=== PATIENT | male | born 1945 | race Caucasian/White ===

== ENCOUNTER → 2017-04-28 | Outpatient (CLI) | payer MEDICARE ==
[~2017-04-28] MED LIST: ASPI81TA28 PO; ATOR-22 PO; GLUCTAB7 PO; MULT-506 PO; OMEG10007 PO; TADA5TAB11 PO
== END | disposition home or self-care (01) ==
LOC: C.PATH 16:49
PROVIDERS: ATTEND Dermatology
DX: L82.0 Inflamed seborrheic keratosis (principal)

== ENCOUNTER → 2017-07-30 | Day surgery (SDC) | payer MEDICARE ==
[2017-07-15 08:28] VITALS: Ht 177.8 cm; Wt 74.5 kg
[~2017-07-30] VITALS: Ht 177.8 cm; Wt 74.5 kg
[~2017-07-30] MED LIST changes: +LIDOCAINE HCL 2% 2 ML VIAL (20MG/ML) ONE; +PROPOFOL IV EMULSION 10 MG/ML 20 ML VIAL IV ONE; +SODIUM CHLORIDE 0.9% 500ML 500 ML IV ONE
--- NOTE | 2017-07-30 08:09 | Endo History and Physical ---
History & Physical Date of Service: Jul 30, 2017. Chief Complaint: screening Referring Physician: RODNEY ROSE History of Present Illness 72 yo CM who presents for screening colonoscopy. Past Medical History Arthritis, Asthma, Reflux, High Cholesterol Past Surgical History Hx Cardiac Surgery: No Hx Internal Defibrillator: No Hx Pacemaker: No Hx Abdominal Surgery: No Hx of Implantable Prosthesis: No Hx Post-Op Nausea and Vomiting: No Hx Cancer Surgery: No Hx Thoracic Surgery: No Hx Orthopedic: No Hx Urinary Tract Surgery: No Family History None Social History Smoking Status: Never Smoker Hx Substance Use: No Hx Alcohol Use: Yes (OCCASIONAL) Allergies Coded Allergies: No Known Allergies (Verified , 07/30/17) Current Medications Reported Home Medications Medications Dose Route/Sig Max Daily Dose Days Date Category Aspirin Ec (Aspirin) 81 Mg Tab 81 Mg PO QAM 07/15/17 Reported [place]-3 (Fish Oil) 1 Ea Cap 1 Cap PO DAILY 06/14/16 Reported Glucosamine Chondroitin (Pyfzqwomafo-Tpjwzqujbwj-Ibu C-) 1 Tab Tab 1 Tab PO DAILY 06/14/16 Reported Lipitor (Atorvastatin Calcium) 20 Mg Tab 20 Mg PO QPM 03/07/16 Reported Cialis (Tadalafil) 5 Mg Tab 5 Mg PO DAILY PRN 04/11/15 Reported Multivitamin (Multivitamins) Tab 1 Tab PO QAM 03/28/10 Reported Vital Signs Weight (Kilograms): 74.55 Height (Feet): 5 Height (Inches): 10 Date Time Temp Pulse Resp B/P (MAP) Pulse Ox O2 Delivery O2 Flow Rate FiO2 07/30/17 08:02 36.5 73 16 119/72 (88) 93 Room Air Physical Exam General Appearance: WD/WN, no apparent distress Respiratory/Chest: Auscultation: breath sounds normal Cardiovascular: Heart Auscultation: RRR Abdomen: Bowel Sounds: normal Inspection & Palpation: soft, non-distended, no tenderness, guarding & rebound Assessment and Plan Assessment: 72 yo CM who presents for screening colonoscopy. Plan: Proceed with colonoscopy.
--- NOTE | 2017-07-30 08:39 | Discharge Instructions ---
Endoscopy Patient Instructions Date / Procedure(s) Performed Jul 30, 2017. Colonoscopy Allergy Information Coded Allergies: No Known Allergies (Verified , 07/30/17) Discharge Date / Findings Jul 30, 2017. Diverticulosis Internal hemorrhoids Medication Instructions Stopped Medication(s): aspirin 81mg last dose 07/28/17 OK to resume all medications today as prescribed Reported Home Medications Medications Dose Route/Sig Max Daily Dose Days Date Category Aspirin Ec (Aspirin) 81 Mg Tab 81 Mg PO QAM 07/15/17 Reported [place]-3 (Fish Oil) 1 Ea Cap 1 Cap PO DAILY 06/14/16 Reported Glucosamine Chondroitin (Kummhdfakqv-Zujqoqixicv-Wai C-) 1 Tab Tab 1 Tab PO DAILY 06/14/16 Reported Lipitor (Atorvastatin Calcium) 20 Mg Tab 20 Mg PO QPM 03/07/16 Reported Cialis (Tadalafil) 5 Mg Tab 5 Mg PO DAILY PRN 04/11/15 Reported Multivitamin (Multivitamins) Tab 1 Tab PO QAM 03/28/10 Reported Provider Instructions Activity Restrictions - No exercising or heavy lifting for 24 hours. - Do not drink alcohol the day of the procedure. - Do not drive a car or operate machinery until the day after the procedure. - Do not make any important decisions or sign important papers in 24 hours after the procedure. Following Day: - Return to full activity which may include returning to work/school. Diet Start your diet with liquids and light foods (jello, soup, juice, toast). Then eat your usual diet if not nauseated. Treatment For Common After Affects For mild abdominal pain, bloating, or excessive gas: - Rest - Eat lightly - Lie on right side Follow-Up Information Follow-up with RODNEY ROSE as scheduled Anesthesia Information What You Should Know You have had a procedure that required some medicine to reduce anxiety and discomfort. This treatment is called moderate sedation. After receiving the treatment, you may be sleepy, but you will be able to breathe on your own. The effects of the treatment may last for several hours. Follow these instructions along with Activity/Diet recommendations noted above: * Do NOT do anything where dizziness or clumsiness would be dangerous. * Rest quietly at home today, then you can be up and about tomorrow. * Have a responsible person stay with you the rest of today. * You may have had an I.V. today. If so, you may take the dressing off later today. Recommendations Call your doctor if: * Trouble breathing * Continuous vomiting for more than 24 hours * Temperature above 101 degrees * Severe abdominal pain or bloating * Pain not relieved by pain medicine ordered * There is increased drainage or redness from any incision * A large amount of rectal bleeding greater than 2-3 tablespoons. (If you had a polyp/s removed or have hemorrhoids, a small amount of blood - from the rectum is to be expected.) * You have any unanswered questions or concerns. IN THE EVENT OF A SERIOUS EMERGENCY, GO TO THE NEAREST EMERGENCY ROOM Your discharge instructions were prepared by provider Gucci Wilcox. Patient Instructions Signature Page Dre Mcduffie Patient (or Guardian) Signature/Date: I have read and understand the instructions given to me by my caregivers. Caregiver/RN/Doctor Signature/Date: The above-named patient and/or guardian has received patient instructions on this date. + Original Patient Signature Page (only) stays with chart. Please make copy for patient.
--- NOTE | 2017-07-30 08:55 | Anesthesiology Progress Note ---
Anesthesia Post Op Note Date & Time Jul 30, 2017 at 08:55 Vital Signs Pain Intensity: 0 Vital Signs Past 12 Hours Date Time Temp Pulse Resp B/P (MAP) Pulse Ox O2 Delivery O2 Flow Rate FiO2 07/30/17 08:38 73 16 118/68 (85) 95 Room Air 07/30/17 08:02 36.5 73 16 119/72 (88) 93 Room Air Notes Mental Status: alert / awake / arousable, participated in evaluation Pt Amnestic to Procedure: Yes Nausea / Vomiting: adequately controlled Pain: adequately controlled Airway Patency, RR, SpO2: stable & adequate BP & HR: stable & adequate Hydration State: stable & adequate Anesthetic Complications: no major complications apparent
--- NOTE | 2017-07-30 09:00 | GI REPORT ---
Procedure Date: 07/30/2017 8:19 AM Procedure: Colonoscopy Indications: Screening for colorectal malignant neoplasm Medicines: Monitored Anesthesia Care Complications: No immediate complications. Estimated Blood Loss: Estimated blood loss: none. Procedure: Pre-Anesthesia Assessment: - Prior to the procedure, a History and Physical was performed, and patient medications and allergies were reviewed. The patient's tolerance of previous anesthesia was also reviewed. The risks and benefits of the procedure and the sedation options and risks were discussed with the patient. All questions were answered, and informed consent was obtained. Prior Anticoagulants: The patient has taken no previous anticoagulant or antiplatelet agents. ASA Grade Assessment: I - A normal, healthy patient. After reviewing the risks and benefits, the patient was deemed in satisfactory condition to undergo the procedure. After I obtained informed consent, the scope was passed under direct vision. Throughout the procedure, the patient's blood pressure, pulse, and oxygen saturations were monitored continuously. The On-site loaner was introduced through the anus and advanced to the terminal ileum. The colonoscopy was performed without difficulty. The patient tolerated the procedure well. The quality of the bowel preparation was good. The terminal ileum, ileocecal valve, appendiceal orifice, and rectum were photographed. Findings: Multiple small-mouthed diverticula were found in the sigmoid colon. Non-bleeding internal hemorrhoids were found during retroflexion. The hemorrhoids were small. Impression: - Diverticulosis in the sigmoid colon. - Non-bleeding internal hemorrhoids. - No specimens collected. Recommendation: - Resume previous diet. - Continue present medications. - Repeat colonoscopy in 10 years for surveillance. - Return to primary care physician as previously scheduled. Gucci Wilcox, DO 07/30/2017 8:59:49 AM This report has been signed electronically. Note Initiated On: 07/30/2017 8:19 AM I attest to the content of the Intraoperative Record and orders documented therein, exceptions below
[2017-07-30 09:09] VITALS: BP 132/72; PULSE 67; O2SAT 97
== END | disposition home or self-care (01) ==
LOC: C.GI 07:29
PROVIDERS: ATTEND Internal Medicine
DX: Z12.11 Encounter for screening for malignant neoplasm of colon (principal); K57.30 Diverticulosis of large intestine without perforation or abscess without bleeding; K64.8 Other hemorrhoids; E78.00 Pure hypercholesterolemia, unspecified; K21.9 Gastro-esophageal reflux disease without esophagitis; J45.909 Unspecified asthma, uncomplicated; M19.90 Unspecified osteoarthritis, unspecified site; Z79.82 Long term (current) use of aspirin; Z79.899 Other long term (current) drug therapy

== ENCOUNTER → 2018-03-31 | Outpatient (CLI) | payer MEDICARE ==
[~2018-03-31] MED LIST changes: -LIDOCAINE HCL 2% 2 ML VIAL (20MG/ML) ONE; -PROPOFOL IV EMULSION 10 MG/ML 20 ML VIAL IV ONE; -SODIUM CHLORIDE 0.9% 500ML 500 ML IV ONE
--- NOTE | 2018-03-31 12:01 | DIAGNOSTIC IMAGING REPORT ---
TWO VIEW CHEST CLINICAL HISTORY: Cough. FINDINGS: PA and lateral chest radiographs are compared to study dated 03/28/2010. The heart is mildly enlarged and there is atherosclerotic calcification of the thoracic aorta. Chronic interstitial thickening is similar to previous. No airspace consolidation or pleural effusion is identified. There is no pneumothorax. The skeletal structures are osteopenic. The bony thorax appears intact. IMPRESSION: Mild cardiac enlargement with no acute cardiopulmonary abnormality. Electronically signed by: Oli Dawson M.D. 03/31/2018 11:59 AM Dictated Date/Time: 03/31/2018 11:58 AM
== END | disposition home or self-care (01) ==
LOC: C.RADBC 10:11
PROVIDERS: ATTEND Nurse Practitioner Family
DX: R05 Cough (principal)

== ENCOUNTER 2023-11-15 10:32 | Observation (INO) ==
[2023-11-15] MEDS ORDERED: SODIUM CHLORIDE 0.9% 1,000 ML IV ONE (10:41)
--- NOTE | 2023-11-15 10:47 | Emergency Department Note ---
Impression & Plan Bilateral pulmonary embolism, Chest pain, S/P TURP ED Provider Note NAME: BRAYDEN CASAS AGE: 78 SEX: M ARRIVES VIA: Walk-In INFORMANT: Patient ED PROVIDER(S): Amadou Will MD CHIEF COMPLAINT: Chest pain PLAN: Disposition: Admit MEDICAL DECISION MAKING: The patient is a pleasant 78-year-old gentleman with a past medical history of BPH who presents to the emergency department via walk-in for evaluation of chest pain that began yesterday evening and then again today in the setting of having a TURP procedure with urology earlier in the week. He reports he is concerned because his discharge directions included the risk of blood clots due to having had anesthesia. He denies any pain with inspiration. No significant shortness of breath. He reports he is traveling to [place] on Friday and wanted to be reassured that having is okay. He denies any fevers, chills, cough congestion, nausea, vomiting, or diarrhea. He reports he does have history of acid reflux and symptoms did begin after eating [place]er food last night. He denies any personal or family history of blood clots. On my evaluation the patient is no acute distress, afebrile stable vital signs. He has clear lungs. Normal respiratory effort. EKG without overt acute ischemia. Chest x-ray negative for acute cardiopulmonary process. WBC, H/H and platelets within normal limits. Chemistry without metabolic acidosis. Electrolytes LFTs unremarkable.-2 troponin 40.4, within normal limits. Lipase not elevated. CT of the chest was performed and demonstrates several bilateral segmental and subsegmental pulmonary emboli. Incidental small pericardial effusion is present. Findings reviewed with the patient. PESI score is intermediate risk. Patient agrees with plan for admission for further management. Case was discussed with Dr. Neves, [facility] hospitalist, who will evaluate the patient for admission. Treatment initiated with IV Heparin bolus and gtt. Further management per admitting team. Triage Nursing notes reviewed and agree them. Prior/external medical records reviewed Vital Signs: reviewed Differential diagnosis: Reactive airway disease, pneumonia, pneumothorax, COPD, CHF, infections, cardiac ischemia, pulmonary embolism, musculoskeletal, gastrointestinal, as well as other pathologies. ER treatment provided: See below. Diagnostics interpreted by me: ECG: Normal sinus rhythm, 83 bpm, no ectopy, no overt ST elevation or depression, QTc 418, QRS 98. Cardiac Monitoring: An order for continuous cardiac monitoring was placed and demonstrated Normal sinus rhythm, 83 bpm, no ectopy, Laboratory studies: See below Imaging studies: See below Consultation(s): Case was discussed with Dr. Neves, [facility] hospitalist, who will evaluate the patient for admission. HPI: The patient is a pleasant 78-year-old gentleman with a past medical history of BPH who presents to the emergency department via walk-in for evaluation of chest pain that began yesterday evening and then again today in the setting of having a TURP procedure with urology earlier in the week. He reports he is concerned because his discharge directions included the risk of blood clots due to having had anesthesia. He denies any pain with inspiration. No significant shortness of breath. He reports he is traveling to [facility] on Friday and wanted to be reassured that having is okay. He denies any fevers, chills, cough congestion, nausea, vomiting, or diarrhea. He reports he does have history of acid reflux and symptoms did begin after eating [place] food last night. He denies any personal or family history of blood clots. ROS: See above HPI for pertinent positives & negatives. A total of 10 systems reviewed and were otherwise negative. VITALS:See Below PHYSICAL EXAMINATION: GENERAL: Awake, alert, well-appearing, in no distress HENT: Normocephalic, atraumatic. Oropharynx with dry mucous membranes and otherwise unremarkable. EYES: Normal conjunctiva. Sclera non-icteric. NECK: Supple. No nuchal rigidity. FROM. No JVD. RESPIRATORY: Clear to auscultation. CARDIAC: Regular rate, normal rhythm. Extremities warm and well perfused. Pulses equal. ABDOMEN: Soft, non-distended. No tenderness to palpation. No rebound or guarding. No masses. RECTAL: Deferred. MUSCULOSKELETAL: Chest examination reveals no tenderness. The back is symmetrical on inspection without obvious abnormality. There is no CVA tenderness to palpation. No joint edema. LOWER EXTREMITIES: Calves are equal size bilaterally and non-tender. No edema. No discoloration. NEURO: Normal sensorium. No sensory or motor deficits noted. SKIN: No rash or jaundice noted. ED COURSE: Critical Care: I have personally spent greater than 35 minutes of critical care time in the direct management of this patient. This includes bedside care, interpretation of diagnostic studies, and testing, discussion with consultants, patient, and family members, and other required patient management activities. This 35 minutes is in excess of all separately billable procedures. Amadou Will MD Past Med/Surg History Medical History Trouble swallowing hx/egd with dilation within last 6 mon and effective. UTI (urinary tract infection) current abx for/pt feeling better. Acid reflux very mild. 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) Surgical History History of esophageal dilatation History of cataract surgery right History of esophagogastroduodenoscopy (EGD) History of colonoscopy History of tooth extraction WTE Family History Sister Breast cancer Father Heart abnormality Heart disease Diabetes Mother Diabetes Aunt Diabetes Denies family history of Malignant hyperthermia Ovarian cancer Prostate cancer Myocardial infarction Adverse anesthesia outcome Bleeding disorder Colorectal cancer Social History Smoking Status: Never smoker Second Hand Exposure: No; Do You Dip or Chew Tobacco: No; Hx Alcohol Use: Yes (socially) Alcohol type: beer, wine and hard liquor Alcohol Intake Frequency: Monthly or Less Hx Substance Use: No Preferred Language: Persian Communication Ability: Effective Visual Impairment: No Limitations Hearing Ability: Use of Hearing Aid Software Applications Engineer Required: No Beliefs That Will Affect Care: None marital status: Current Living Situation: Spouse current occupational status: retired How many Children do You have: 3 Feels Safe at Home: Yes Childhood Exposure to Second-Hand Smoke: No Diet: regular caffeine: Yes during the past year weight has: remained stable Dental Care, Regularly: Yes Physical Activity Frequency: Daily Seatbelt Use: always Sunscreen Use: Yes Do you think of yourself as: straight/heterosexual Assistive Devices: Glasses and Hearing Aid - Bilateral Allergies Allergies Allergy/AdvReac Type Severity Reaction Status Date / Time No Known Allergies Allergy Verified 11/11/23 10:34 Home Meds Home Medications Medication Instructions Recorded Confirmed antiarthritic combination no.2 900 1 mg PO QAM 04/20/19 11/15/23 mg tablet (glucosamine-chondroitin) atorvastatin 40 mg tablet 40 mg PO QPM 04/20/19 11/15/23 omega-3 fatty acids 1,000 mg 1,000 mg PO QAM 04/20/19 11/15/23 capsule (Fish Oil Concentrate) multivitamin (Daily Multi-Vitamin 1 tab PO QAM 05/01/20 11/15/23 tablet) fluticasone propionate 50 2 spray intranasal UD PRN 02/17/23 11/15/23 mcg/actuation nasal Congestion spray,suspension (Flonase Allergy Relief) tadalafil 5 mg tablet (Cialis) 5 mg PO UD PRN Sexual Activity 09/01/23 11/15/23 finasteride 5 mg tablet 5 mg PO QAM 11/05/23 11/15/23 pantoprazole 40 mg tablet,delayed 40 mg PO UD PRN Acid Reflux 11/05/23 11/15/23 release tamsulosin 0.4 mg capsule 0.4 mg PO QAM 11/05/23 11/15/23 Previous Rx's Medication Instructions Recorded sulfamethoxazole 800 1 tab PO BID #60 tabs 11/11/23 mg-trimethoprim 160 mg tablet (Bactrim DS) Results & Data (ED) Vital Signs Vital Signs - 24 hr 11/15/23 10:35 11/15/23 11:41 11/15/23 11:41 Temperature 36.5 C Temperature Source Temporal Artery Scan Pulse Rate 88 77 Pulse Rate [Right Finger] Respiratory Rate 19 16 Respiratory Effort / Characteristics Non-Labored Spontaneous Respiratory Depth Normal Respiratory Pattern Blood Pressure 123/75 Blood Pressure [Right Arm] Blood Pressure Mean 91 Blood Pressure Mean [Right Arm] Blood Pressure Position [Right Arm] Pulse Oximetry 98 98 98 Oxygen Delivery Method Room Air Room Air Room Air Sepsis Recent Fever Within 48 Hours No Sepsis New/Unexplained Change in Mental Status No Sepsis Action Taken by Nursing No Action Required 11/15/23 11:46 11/15/23 12:33 Temperature Temperature Source Pulse Rate 74 Pulse Rate [Right Finger] 76 Respiratory Rate 16 Respiratory Effort / Characteristics Non-Labored Spontaneous Respiratory Depth Normal Respiratory Pattern Regular Blood Pressure Blood Pressure [Right Arm] 132/73 Blood Pressure Mean Blood Pressure Mean [Right Arm] 92 Blood Pressure Position [Right Arm] Sitting Pulse Oximetry 97 Oxygen Delivery Method Room Air Sepsis Recent Fever Within 48 Hours Sepsis New/Unexplained Change in Mental Status Sepsis Action Taken by Nursing Laboratory Data Attestation: I reviewed the patient's lab results. 11/15/23 11:15 11/15/23 11:15 Lab Results 11/15/23 Range/Units 11:15 WBC 8.22 (4.8-10.8) K/ul RBC 4.93 (4.70-6.10) M/uL Hgb 15.2 (14.0-18.0) g/dl Hct 46.4 (42.0-52.0) % MCV 94.1 (80.0-100.0) fL MCH 30.8 (25.0-34.0) pg MCHC 32.8 (32.0-36.0) g/dL RDW Std Deviation 42.6 (36.4-46.3) fL RDW Coeff of Radha 12.3 (11.5-14.5) % Plt Count 283 (130-400) K/uL MPV 9.5 (9.4-12.4) fL Immature Gran % (Auto) 0.4 % Neut % (Auto) 79.6 % Lymph % (Auto) 8.2 % [place] % (Auto) 10.7 % Eos % (Auto) 0.7 % Baso % (Auto) 0.4 % Neut # (Auto) 6.55 H (1.40-6.50) K/uL Lymph # (Auto) 0.67 L (1.20-3.40) K/uL [place] # (Auto) 0.88 H (0.11-0.59) K/uL Eos # (Auto) 0.06 (0.00-0.50) K/uL Baso # (Auto) 0.03 (0.00-0.20) K/uL Immature Gran # (Auto) 0.03 (0.01-0.20) K/uL PT 10.7 (9.0-12.0) Seconds INR 1.0 (0.9-1.1) APTT 30 (21-31) Seconds PTT Ratio 1.1 Sodium 135 L (136-145) mmol/L Potassium 4.4 (3.5-5.1) mmol/L Chloride 102 (98-107) mmol/L Carbon Dioxide 26 (21-32) mmol/L Anion Gap 7 (3-11) BUN 18 (6-23) mg/dl Creatinine 1.21 (0.6-1.4) mg/dl Est Cr Clr Drug Dosing 51.9 ml/min Est GFR ( Amer) 67.0 ml/min Est GFR (Non-Af Amer) 57.8 ml/min BUN/Creatinine Ratio 14.9 (10-20) Glucose 117 H (70-99(Fasting)) mg/dl Calcium 9.3 (8.6-10.3) mg/dl Total Bilirubin 0.7 (0.2-1.0) mg/dl AST 17 (13-39) U/L ALT 24 (7-52) U/L Alkaline Phosphatase 34 (34-104) U/L Troponin I High Sens 14.4 (0-20) pg/ml Total Protein 7.6 (6.0-8.3) gm/dl Albumin 3.6 (3.4-5.0) gm/dl Globulin 4.0 (2.5-4.0) gm/dl Albumin/Globulin Ratio 0.9 (0.9-2) Lipase 11 (11-82) U/L Administered Medications Heparin Sodium/Dextrose (Heparin Sodium/Dextrose) 25,000 units in 500 mls @ 26 mls/hr IV .[id number] [facility]; Protocol Stop: 11/16/23 09:00 Last Admin: 11/15/23 14:53 Dose: 1,300 units/hr, 26 mls/hr Documented By: CPB Co-signed By: MMSwati Discontinued Medications Heparin Sodium (Porcine) (Heparin Sod (Porcine) 1000 Unit/Ml) 6,000 units IV NOW ONE Stop: 11/15/23 14:01 Last Admin: 11/15/23 14:53 Dose: 6,000 units Documented By: CPB Co-signed By: MMSwati Heparin Sodium/Dextrose (Heparin Iv Adult Wt-Based Standard W/ Initial Bolus Protocol) 1 each IV NOW STA; Protocol Stop: 11/15/23 13:34 Last Admin: 11/15/23 14:53 Dose: 1 each Documented By: CPB Sodium Chloride (Nss) 1,000 mls @ 999 mls/hr IV .Q1H1M ONE Stop: 11/15/23 11:41 Last Infusion: 11/15/23 12:37 Dose: Infused Documented By: Admin: 11/15/23 11:14 Dose: 999 mls/hr Documented By: CPB Ioversol (Optiray 320 125ml) 115 ml IV ONCE ONE Stop: 11/15/23 12:41 Last Admin: 11/15/23 12:40 Dose: 115 ml Documented By: SEJ Imaging Data Radiologist's Impression: Chest X-Ray 11/15/23 10:41 XR chest 1V portable CLINICAL HISTORY: Chest pain, nonspecific. COMPARISON STUDY: Chest radiograph September 03, 2023. FINDINGS: Lung volumes are normal. Lungs are clear. There is no pneumothorax or pleural effusion. Cardiac size is normal. Mediastinal contours are normal. There is no evidence for pulmonary edema. IMPRESSION: No acute cardiopulmonary findings. No change in appearance of the chest. ACT 112: Negative or not required by law. Electronically signed by: Daniel Marmolejo M.D. 11/15/2023 10:50 AM Chest CTA 11/15/23 11:04 CT ANGIOGRAPHY OF THE CHEST, PULMONARY EMBOLUS PROTOCOL CLINICAL HISTORY: Chest s/p TURP. Evaluate for pulmonary embolus. COMPARISON STUDY: Chest radiograph September 03, 2023 and November 15, 2023. TECHNIQUE: Following IV administration of 115 mL of Optiray, helical axial images of the chest were obtained utilizing the pulmonary embolus protocol. Maximal intensity projections and sagittal and coronal reformats were viewed on an independent 3D workstation. IV contrast was administered without complication. Automated exposure control was utilized for the study. A dose lowering technique was utilized adhering to the principles of ALARA. CT DOSE: 664.61 mGy.cm FINDINGS: There are several acute-appearing bilateral segmental and subsegmental pulmonary emboli. No central pulmonary embolus is present. There is no evidence for right heart strain. There is no pulmonary infarct. Lungs are suboptimally assessed due to respiratory motion. Groundglass opacities within lungs favor atelectasis. There is mild cardiomegaly. Small pericardial effusion is present. There is moderate coronary artery calcification. Right hepatic lobe cyst is incidentally noted. IMPRESSION: 1. Several bilateral segmental and subsegmental pulmonary emboli. 2. Mild cardiomegaly. Small pericardial effusion. Moderate coronary artery calcification. ACT 112: Negative or not required by law. Electronically signed by: Daniel Marmolejo M.D. 11/15/2023 12:51 PM Discharge Plan Visit Data Chief Complaint: Cardiac Assessment Stated Complaint: SURGERY 1.2, DISCOMFORT IN CHEST, WANTS X-RAY ED Provider: Amadou Will Discharge Problem: Bilateral pulmonary embolism, Chest pain, S/P TURP Patient Disposition: Admitted As Inpatient Discharge Instructions Interventions: ED Discharge Assessment Last Done: 11/15/23 15:16 Discharge Problem: Chest pain Qualifiers: Chest pain type: unspecified Qualified Code(s): R07.9 - Chest pain, unspecified
--- NOTE | 2023-11-15 10:51 | XRay Report ---
XR chest 1V portable CLINICAL HISTORY: Chest pain, nonspecific. COMPARISON STUDY: Chest radiograph September 03, 2023. FINDINGS: Lung volumes are normal. Lungs are clear. There is no pneumothorax or pleural effusion. Car diac size is normal. Mediastinal contours are normal. There is no evidence for pulmonary edema. IMPRESSION: No acute cardiopulmonary findings. No change in appearance of the chest. ACT 112: Negative or not required by law. Electronically signed by: Daniel Marmolejo M.D. 11/15/2023 10:50 AM
[2023-11-15 11:36] LABS: Basophils # (auto) 0.03 K/uL (0.00-0.20); Basophils % (auto) 0.4 %; Eosinophils # (auto) 0.06 K/uL (0.00-0.50); Eosinophils % (auto) 0.7 %; Hematocrit (blood only) 46.4 % (42.0-52.0); Hemoglobin 15.2 g/dl (14.0-18.0); Immature Granulocytes # (auto) 0.03 K/uL (0.01-0.20); Immature Granulocytes % (auto) 0.4 %; Lymphocytes # (auto) 0.67 K/uL (1.20-3.40); Lymphocytes % (auto) 8.2 %; Mean Corpuscular Hemoglobin 30.8 pg (25.0-34.0); Mean Corpuscular Hgb Conc 32.8 g/dL (32.0-36.0); Mean Corpuscular Volume 94.1 fL (80.0-100.0); Mean Platelet Volume 9.5 fL (9.4-12.4); Monocytes # (auto) 0.88 K/uL (0.11-0.59); Monocytes % (auto) 10.7 %; Neutrophils # (auto) 6.55 K/uL (1.40-6.50); Neutrophils % (auto) 79.6 %; Platelet Count 283 K/uL (130-400); RDW Coefficient of Variation 12.3 % (11.5-14.5); RDW Standard Deviation 42.6 fL (36.4-46.3); Red Blood Count 4.93 M/uL (4.70-6.10); White Blood Count 8.22 K/ul (4.8-10.8)
[2023-11-15 11:45] LABS: Albumin Globulin Ratio 0.9 (0.9-2); Albumin Level 3.6 gm/dl (3.4-5.0); BUN Creatinine Ratio 14.9 (10-20); Bilirubin,Total 0.7 mg/dl (0.2-1.0); Calcium 9.3 mg/dl (8.6-10.3); Creatinine Clr Calc Pharmacy 51.9 ml/min; Est GFR (Non-African American) 57.8 ml/min; Potassium 4.4 mmol/L (3.5-5.1); Total Protein 7.6 gm/dl (6.0-8.3)
[2023-11-15 11:52] LABS: Troponin I High Sensitivity 14.4 pg/ml (0-20)
[2023-11-15] MEDS ORDERED: OPTIRAY 320 125ml IV ONE (12:40)
--- NOTE | 2023-11-15 12:53 | CT Scan Report ---
CT ANGIOGRAPHY OF THE CHEST, PULMONARY EMBOLUS PROTOCOL CLINICAL HISTORY: Chest s/p TURP. Evaluate for pulmonary embolus. COMPARISON STUDY: Chest radiograph September 03, 2023 and November 15, 2023. TECHNIQUE: Following IV administration of 115 mL of Optiray, helical axial images of the chest were o btained utilizing the pulmonary embolus protocol. Maximal intensity projections and sagittal and cor onal reformats were viewed on an independent 3D workstation. IV contrast was administered without co mplication. Automated exposure control was utilized for the study. A dose lowering technique was ut ilized adhering to the principles of ALARA. CT DOSE: 664.61 mGy.cm FINDINGS: There are several acute-appearing bilateral segmental and subsegmental pulmonary emboli. N o central pulmonary embolus is present. There is no evidence for right heart strain. There is no pulm onary infarct. Lungs are suboptimally assessed due to respiratory motion. Groundglass opacities withi n lungs favor atelectasis. There is mild cardiomegaly. Small pericardial effusion is present. There i s moderate coronary artery calcification. Right hepatic lobe cyst is incidentally noted. IMPRESSION: 1. Several bilateral segmental and subsegmental pulmonary emboli. 2. Mild cardiomegaly. Small pericardial effusion. Moderate coronary artery calcification. ACT 112: Negative or not required by law. Electronically signed by: Daniel Marmolejo M.D. 11/15/2023 12:51 PM
[2023-11-15] MEDS ORDERED: Heparin IV Adult Wt-Based Standard w/ INITIAL Bolus Protocol IV STA (13:33)
--- NOTE | 2023-11-15 13:35 | History & Physical Report ---
Date of Service November 15, 2023 Assessment & Plan (1) Bilateral pulmonary embolism: Plan: - Several bilateral segmental and subsegmental pulmonary emboli. Lower extremity Dopplers pending No hypoxia High sensitive troponin is normal EKG without evidence of right heart strain, no territorial ST/T wave/ischemic changes No evidence of ACS. Patient did present with a feeling she describes as slight discomfort or pressure not pain in the center of his chest but this is not associated or worsened with exercise, is able to walk and perform activities without shortness of breath or pain. Likely due to PE PESI class III and with recent surgical intervention, recommended for observation with initiation of anticoagulation Heparin GTT started while in ER. If tolerating well transition to of 11/16 Patient was pending travel to [place] and is concerned about whether he can keep this. Did discuss that there is no clear data regarding when the ideal time to travel after a VTE/PE develops and that while he is theoretically pr otected from additional clot and worsening by his blood thinner he is at risk of bleeding complications both due to his history of diverticular bleed and recent surgical procedures. Reasonable to delay travel by around 2 to 4 weeks and then if doing well revisit at that time. Provoking risk factor of recent surgical procedure, otherwise no family history no increased risk factors. Target 3-6-month course of anticoagulation and then reassess as outpt (2) Benign localized prostatic hyperplasia with lower urinary tract symptoms (LUTS): Plan: S/p TURP 11/11/2023. Following with urology Continue Bactrim Patient has been voiding well without retention. Did have a note about having a temporary catheter placed prior to his travel this was not for medical concern but more for logistics of being concerned about having to void over a long flight. No indication for catheter placement at this time. Bladder scan as needed (3) Hypercholesterolemia: Plan: Continue statin (4) History of hepatitis A: Plan: Self-limited, no transaminitis, following as outpatient no acute change in management Plan DVT prophylaxis: Anticoagulated Diet: Regular disposition: Medical telemetry CODE STATUS: DNR/DNI History of Present Illness Primary Care Provider: Curtis Zepeda, III, VIOLA Dre is a 78-year-old male with a past medical history of BPH with LUTS and severe voiding dysfunction s/p Rezum, s/p TURP 11/11/2023, hyperlipidemia, have a positive hepatitis a IgG 09/2023 Patient was daily for stooling on Friday and was pending catheter placement and urology had an office visit prior to leaving. Presents to the ER for evaluation of chest pain which began 1 day ago and was recurrent this morning. Patient is found to have several bilateral segmental and subsegmental pulmonary emboli, stable cardiomegaly with small pericardial effusion, and no pulmonary infarct. pesi class III intermediate risk. Due to age, comorbidity, recent procedural intervention, and moderate risk PE patient is recommended for initiation of anticoagulation as an inpatient, monitoring for bleeding, and transition to oral agent on discharge if stable. 2 episodes of ches tpain unusual for him after eating aust[place] food. REcurred this morning, and was concerneda bout clots due to his recent TURP. While the chest sensation was more of a pressure and noticed it more when laying down in bed, and did not occur during exertion at all. Walked a half mile with his dog and had no pain/dyspnea. No pain on deep inspiration, but does have a strange pressure in the center of his chest on deep breathing. No leg swelling. No history of blood clots. No family history of DVT/PE No leg trauma or leg injuries No recent travel/long car rides. Planned trip to [place] on friday. No syncope/presyncope Medical History: Reviewed Medications: Reviewed Surgical History: Reviewed Family history: Reviewed Allergies: Reviewed. NKDA Social History: No tobacco. Rare social ETOH use. Code Status: DNR/DNI Allergies Allergy/AdvReac Type Severity Reaction Status Date / Time No Known Allergies Allergy Verified 11/11/23 10:34 Home Medications Medication Instructions Recorded Confirmed Type antiarthritic combination no.2 900 1 mg PO QAM 04/20/19 11/15/23 History mg tablet (glucosamine-chondroitin) atorvastatin 40 mg tablet 40 mg PO QPM 04/20/19 11/15/23 History omega-3 fatty acids 1,000 mg 1,000 mg PO QAM 04/20/19 11/15/23 History capsule (Fish Oil Concentrate) multivitamin (Daily Multi-Vitamin 1 tab PO QAM 05/01/20 11/15/23 History tablet) fluticasone propionate 50 2 spray intranasal UD PRN 02/17/23 11/15/23 History mcg/actuation nasal Congestion spray,suspension (Flonase Allergy Relief) tadalafil 5 mg tablet (Cialis) 5 mg PO UD PRN Sexual Activity 09/01/23 11/15/23 History finasteride 5 mg tablet 5 mg PO QAM 11/05/23 11/15/23 History pantoprazole 40 mg tablet,delayed 40 mg PO UD PRN Acid Reflux 11/05/23 11/15/23 History release tamsulosin 0.4 mg capsule 0.4 mg PO QAM 11/05/23 11/15/23 History sulfamethoxazole 800 1 tab PO BID #60 tabs 11/11/23 11/15/23 Rx mg-trimethoprim 160 mg tablet (Bactrim DS) Past Med/Surg History Medical History (Updated 11/15/23 @ 13:57 by Davey Neves MD) Trouble swallowing hx/egd with dilation within last 6 mon and effective. UTI (urinary tract infection) current abx for/pt feeling better. Acid reflux very mild. 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) Surgical History History of esophageal dilatation History of cataract surgery right History of esophagogastroduodenoscopy (EGD) History of colonoscopy History of tooth extraction WTE Family History Sister Breast cancer Father Heart abnormality Heart disease Diabetes Mother Diabetes Aunt Diabetes Denies family history of Malignant hyperthermia Ovarian cancer Prostate cancer Myocardial infarction Adverse anesthesia outcome Bleeding disorder Colorectal cancer Social History Smoking Status: Never smoker Second Hand Exposure: No; Do You Dip or Chew Tobacco: No; Hx Alcohol Use: Yes (socially) Alcohol type: beer, wine and hard liquor Alcohol Intake Frequency: Monthly or Less Hx Substance Use: No Preferred Language: Indonesian Communication Ability: Effective Visual Impairment: No Limitations Hearing Ability: Use of Hearing Aid Glass Crusher Required: No Beliefs That Will Affect Care: None marital status: Current Living Situation: Spouse current occupational status: retired How many Children do You have: 3 Feels Safe at Home: Yes Childhood Exposure to Second-Hand Smoke: No Diet: regular caffeine: Yes during the past year weight has: remained stable Dental Care, Regularly: Yes Physical Activity Frequency: Daily Seatbelt Use: always Sunscreen Use: Yes Do you think of yourself as: straight/heterosexual Assistive Devices: Glasses and Hearing Aid - Bilateral Physical Exam Physical Exam: General: A&Ox3. NAD. Cooperative. HEENT: Atraumatic, normocephalic. Vision/hearing intact. EOM intact. Pulm: CTAB A&P. -wheezes, -rales, -rhonchi. Symmetrical chest rise. No increased work of breathing. No respiratory distress. Cardiac: RRR, -mrg. Radial pulses intact and symmetrical. Abdominal: Nontender, nondistended, soft. BS present. Extremities: Warm, dry. No pitting edema. No swelling/asymmetry Results & Data Results & Data Vital Signs (Past 12 Hours) Vital Signs Temp Pulse Pulse Resp BP BP Pulse Ox 11/15/23 12:33 76 16 132/73 97 11/15/23 11:46 74 11/15/23 11:41 77 16 98 11/15/23 11:41 98 11/15/23 10:35 36.5 C 88 19 123/75 98 O2 Del Method 11/15/23 12:33 Room Air 11/15/23 11:46 11/15/23 11:41 Room Air 11/15/23 11:41 Room Air 11/15/23 10:35 Room Air PG Care Time/CCT Total # of Minutes Spent Total Time Spent with Patient: Total time spent is greater than 50% in coordination of care (as documented) at patient's floor/unit and/or counseling patient: Coding Level of Care Code 31534 INT INP/OBS CARE 2/55MIN Diagnoses Bilateral pulmonary embolism I26.99 Benign localized prostatic hyperplasia with lower urinary tract symptoms (LUTS) N40.1 Hypercholesterolemia E78.00 History of hepatitis A Z86.19
[2023-11-15] MEDS ORDERED: HEPARIN SOD (PORCINE) 1000 UNIT/ML IV ONE ×2 (13:49→14:00)
[2023-11-15] MEDS ORDERED: HEPARIN SODIUM/DEXTROSE 25,000 UNITS/500 ML BAG IV SCH (14:00)
[2023-11-15 14:29] LABS: Partial Thromboplastin Ratio 1.1; Partial Thromboplastin Time 30 Seconds (21-31); Prothrombin Time 10.7 Seconds (9.0-12.0)
[2023-11-15] MEDS ORDERED: ACETAMINOPHEN 325 MG TAB PO PRN (15:15)
[2023-11-15] MEDS ORDERED: PANTOprazole 40 MG TAB PO PRN (15:15)
--- NOTE | 2023-11-15 17:26 | Ultrasound Report ---
BILATERAL LOWER EXTREMITY VENOUS DOPPLER CLINICAL HISTORY: DVT/PE COMPARISON STUDY: No previous studies for comparison. TECHNIQUE: Sonography of the deep venous system of the bilateral lower extremities was performed. Co mpression and augmentation were evaluated. FINDINGS: The bilateral common femoral, superficial femoral and popliteal veins were compressible. A ugmentation was normal. Flow was shown within the deep calf vessels. IMPRESSION: No evidence of deep venous thrombus within the bilateral lower extremities. ACT 112: Negative or not required by law. Electronically signed by: Daniel Marmolejo M.D. 11/15/2023 5:25 PM
[2023-11-15] MEDS: SULFAMETHOXAZOLE/TRIMETHOPRIM DS 800/160MG TAB PO SCH (20:14)
[2023-11-15] MEDS: ATORVASTATIN 40 MG TAB PO SCH (20:14)
[2023-11-15 21:26] LABS: ANTI-Xa, UFH(UnfractionatedHep 0.56 IU/ml (0.3-0.7)
[2023-11-16 05:44] LABS: Basophils # (auto) 0.03 K/uL (0.00-0.20); Basophils % (auto) 0.4 %; Eosinophils # (auto) 0.16 K/uL (0.00-0.50); Eosinophils % (auto) 2.3 %; Hematocrit (blood only) 43.3 % (42.0-52.0); Hemoglobin 14.1 g/dl (14.0-18.0); Immature Granulocytes # (auto) 0.05 K/uL (0.01-0.20); Immature Granulocytes % (auto) 0.7 %; Lymphocytes # (auto) 1.11 K/uL (1.20-3.40); Lymphocytes % (auto) 16.2 %; Mean Corpuscular Hemoglobin 30.7 pg (25.0-34.0); Mean Corpuscular Hgb Conc 32.6 g/dL (32.0-36.0); Mean Corpuscular Volume 94.3 fL (80.0-100.0); Mean Platelet Volume 9.4 fL (9.4-12.4); Monocytes # (auto) 1.07 K/uL (0.11-0.59); Monocytes % (auto) 15.6 %; Neutrophils # (auto) 4.45 K/uL (1.40-6.50); Neutrophils % (auto) 64.8 %; Platelet Count 235 K/uL (130-400); RDW Coefficient of Variation 12.3 % (11.5-14.5); RDW Standard Deviation 42.6 fL (36.4-46.3); Red Blood Count 4.59 M/uL (4.70-6.10); White Blood Count 6.87 K/ul (4.8-10.8)
[2023-11-16 05:57] LABS: Creatinine Clr Calc Pharmacy 51.9 ml/min; Est GFR (Non-African American) 57.8 ml/min; Potassium 5.1 mmol/L (3.5-5.1)
[2023-11-16 06:03] LABS: ANTI-Xa, UFH(UnfractionatedHep 0.48 IU/ml (0.3-0.7)
[2023-11-16] MEDS: APIXABAN 5 MG TABLET PO SCH ×2 (09:17→20:26)
[2023-11-16] MEDS: SULFAMETHOXAZOLE/TRIMETHOPRIM DS 800/160MG TAB PO SCH ×2 (09:18→20:25)
[2023-11-16] MEDS: FINASTERIDE 5 MG TAB PO SCH (09:18)
[2023-11-16] MEDS: TAMSULOSIN HCL 0.4 MG CAP PO SCH (09:18)
--- NOTE | 2023-11-16 14:12 | Hospitalist Progress Note ---
Date of Service November 16, 2023 Assessment & Plan (1) Bilateral pulmonary embolism: Plan: - Several bilateral segmental and subsegmental pulmonary emboli. Lower extremity Dopplers negative No hypoxia High sensitive troponin is normal EKG without evidence of right heart strain, no territorial ST/T wave/ischemic changes Echocardiogram done, pending report to evaluate for right ventricular strain No evidence of ACS. Patient did present with a feeling he describes as slight discomfort or pressure not pain in the center of his chest but this is not associated or worsened with exercise, is able to walk and perform activities without shortness of breath or pain. Likely due to PE Heparin drip was transitioned to Eliquis this morning 11/16 Patient was pending travel to [place] and is concerned about whether he can keep this. Did discuss that there is no clear data regarding when the ideal time to travel after a VTE/PE develops and that while he is theoretically protected from additional clot and worsening by his blood thinner he is at risk of bleeding complications both due to his history of diverticular bleed and recent surgical procedures. Reasonable to delay travel by around 2 to 4 weeks and then if doing well revisit at that time. Provoking risk factor of recent surgical procedure, otherwise no family history no increased risk factors. Likely target 3-6-month course of anticoagulation and then reassess as outpt. Hypercoagulable studies may be done outpatient (2) Benign localized prostatic hyperplasia with lower urinary tract symptoms (LUTS): Plan: S/p TURP 11/11/2023. Following with urology Continue Bactrim Patient has been voiding well without retention. Did have a note about having a temporary catheter placed prior to his travel this was not for medical concern but more for logistics of being concerned about having to void over a long flight. Patient has had some episodes of hematuria. He says that this is not new for him. However the nurse reported passing blood clots. Consult urology Watch for further hematuria while on anticoagulation (3) Hypercholesterolemia: Plan: Continue statin (4) History of hepatitis A: Plan: Self-limited, no transaminitis, following as outpatient no acute change in management Plan DVT prophylaxis: Anticoagulated Diet: Regular CODE STATUS: DNR/DNI Admission and Anticipated Discharge Date Admission Date: November 15, 2023 Subjective Patient complains of chest pain that is very mild about 1/10 in intensity. Other than that, he has no new complaints. Denies shortness of breath. Denies dizziness. He did have some blood in urine but he says that this is not new for him. Review of Systems Review of Systems: All systems reviewed & are unremarkable except as noted in Subjective Physical Exam Physical Exam: General: Awake, conversant Heart: S1, S2/regular rate and rhythm, no murmur rubs or gallops Lungs: Clear to auscultation bilaterally. Normal effort Abdomen: Soft/nontender/nondistended. No hepatosplenomegaly Extremities: No clubbing/cyanosis. No edema Behavior: Appropriate, cooperative Results & Data Results & Data Vital Signs (Past 12 Hours) Vital Signs Temp Pulse Pulse Resp BP Pulse Ox O2 Del Method 11/16/23 12:00 36.7 C 79 16 114/66 94 Room Air 11/16/23 09:00 Room Air 11/16/23 07:23 36.8 C 69 16 107/62 95 Room Air 11/16/23 07:20 65 11/16/23 03:42 36.8 C 69 20 112/67 95 Room Air Laboratory Results Abnormal lab results 11/16/23 Range/Units 05:22 RBC 4.59 L (4.70-6.10) M/uL Lymph # (Auto) 1.11 L (1.20-3.40) K/uL Nye # (Auto) 1.07 H (0.11-0.59) K/uL Sodium 135 L (136-145) mmol/L Glucose 122 H (70-99(Fasting)) mg/dl Diagnostic Findings Venous Doppler Study 11/15/23 15:15 BILATERAL LOWER EXTREMITY VENOUS DOPPLER CLINICAL HISTORY: DVT/PE COMPARISON STUDY: No previous studies for comparison. TECHNIQUE: Sonography of the deep venous system of the bilateral lower extremities was performed. Compression and augmentation were evaluated. FINDINGS: The bilateral common femoral, superficial femoral and popliteal veins were compressible. Augmentation was normal. Flow was shown within the deep calf vessels. IMPRESSION: No evidence of deep venous thrombus within the bilateral lower extremities. ACT 112: Negative or not required by law. Electronically signed by: Daniel Marmolejo M.D. 11/15/2023 5:25 PM PG Care Time/CCT Total # of Minutes Spent Total Time Spent with Patient: Total time spent is greater than 50% in coordination of care (as documented) at patient's floor/unit and/or counseling patient: Coding Level of Care Code 88859 SUB INP/OBS CARE 235MIN Diagnoses Bilateral pulmonary embolism I26.99 Benign localized prostatic hyperplasia with lower urinary tract symptoms (LUTS) N40.1 Hypercholesterolemia E78.00 History of hepatitis A Z86.19
--- NOTE | 2023-11-16 18:32 | XCELERA ---
[id number]
[2023-11-16] MEDS ORDERED: SIMETHICONE 80 MG CHEW PO PRN (19:24)
[2023-11-16] MEDS ORDERED: BISMUTH SUBSALICYLATE SUSP PO PRN (19:24)
[2023-11-16] MEDS: ATORVASTATIN 40 MG TAB PO SCH (20:26)
--- NOTE | 2023-11-16 22:37 | Electrocardiogram Report ---
Test Reason : Blood Pressure : / mmHG Vent. Rate : 083 BPM Atrial Rate : 083 BPM P-R Int : 184 ms QRS Dur : 098 ms QT Int : 356 ms P-R-T Axes : 066 -30 055 degrees QTc Int : 418 ms Normal sinus rhythm Left axis deviation Cannot rule out Anterior infarct (cited on or before 18-APR-2023) Abnormal ECG When compared with ECG of 18-APR-2023 19:01, RI interval has decreased Confirmed by Jaleel Willard ([id number]) on 11/16/2023 10:37:00 PM Referred By: REFERRED SELF Confirmed By:Jaleel Willard
[2023-11-17 07:27] LABS: Basophils # (auto) 0.05 K/uL (0.00-0.20); Basophils % (auto) 0.6 %; Eosinophils # (auto) 0.19 K/uL (0.00-0.50); Eosinophils % (auto) 2.5 %; Hematocrit (blood only) 47.2 % (42.0-52.0); Hemoglobin 15.4 g/dl (14.0-18.0); Immature Granulocytes # (auto) 0.03 K/uL (0.01-0.20); Immature Granulocytes % (auto) 0.4 %; Lymphocytes # (auto) 1.29 K/uL (1.20-3.40); Lymphocytes % (auto) 16.8 %; Mean Corpuscular Hemoglobin 30.7 pg (25.0-34.0); Mean Corpuscular Hgb Conc 32.6 g/dL (32.0-36.0); Mean Platelet Volume 9.5 fL (9.4-12.4); Monocytes # (auto) 1.27 K/uL (0.11-0.59); Monocytes % (auto) 16.5 %; Neutrophils # (auto) 4.87 K/uL (1.40-6.50); Neutrophils % (auto) 63.2 %; Platelet Count 267 K/uL (130-400); RDW Coefficient of Variation 12.3 % (11.5-14.5); RDW Standard Deviation 42.5 fL (36.4-46.3); Red Blood Count 5.02 M/uL (4.70-6.10)
[2023-11-17 07:49] LABS: BUN Creatinine Ratio 11.8 (10-20); Calcium 8.9 mg/dl (8.6-10.3); Creatinine Clr Calc Pharmacy 49.5 ml/min; Est GFR (African American) 63.2 ml/min; Est GFR (Non-African American) 54.5 ml/min; Potassium 4.5 mmol/L (3.5-5.1)
[2023-11-17] MEDS: APIXABAN 5 MG TABLET PO SCH (07:50)
[2023-11-17] MEDS: SULFAMETHOXAZOLE/TRIMETHOPRIM DS 800/160MG TAB PO SCH (07:50)
[2023-11-17] MEDS: FINASTERIDE 5 MG TAB PO SCH (07:52)
[2023-11-17] MEDS: TAMSULOSIN HCL 0.4 MG CAP PO SCH (07:52)
--- NOTE | 2023-11-17 10:54 | Urology Consultation ---
Date of Consultation November 17, 2023 Assessment & Plan (1) S/P TURP: (2) Hematuria: Plan 78yo/M who is s/p TURP 11/11/23 admitted with bilateral pulmonary embolism - Urology asked to evaluate patient due to hematuria. Hematuria in the setting of recent TURP procedure and anticoagulation. Afebrile, Vitals stable. Labs - Hemoglobin stable (15.4) and normal creatinine (1.27). Pt reports he is voiding spontaneously without issue and hematuria is gradually improving. No urological intervention necessary. We discussed that hematuria is not uncommon after TURP procedure and in the setting of anticoagulation. Recommend continued monitoring of symptoms and ability to void. Bladder scan as needed. Encouraged patient to stay well hydrated. Continue anticoagulation per primary team. Continue antibiotics. Will arrange outpatient follow-up with our service. We discussed worrisome signs/symptoms including inability to void/empty bladder and worsening hematuria/clots. Pt verbalized understanding. Urology will follow peripherally. Please call with any further questions or concerns. History of Present Illness Attending Physician: Teresa Bauer MD History of Present Illness 78 year old male with a hx of BPH who is s/p TURP with Dr. Gutierrez on 11/11/23 who presented to the ED on 11/15/23 with complaints of chest pain and was found to have several bilateral segmental and subsegmental pulmonary emboli. Urology consulted for hematuria. Pt was seen for postop follow-up in the urology clinic on 11/13/23. Had been voiding spontaneously without issue. Was planning to leave for [place] today 11/17/23 but developed chest pain over the weekend which prompted his ED evaluation. Pt examined at bedside this AM. Awake, resting in bed on arrival. No acute distress. Denies CP/SOB. Voiding spontaneously without issue. Reports some mild hematuria today. Describes as "rust colored." Denies passing any clots today. Stream good. Feels he is emptying well. Still with some urge/freq but gradually improving since procedure. Now on Eliquis. He is hoping for d/c to home later today. Denies additional issues/concerns at present. Allergies Allergy/AdvReac Type Severity Reaction Status Date / Time No Known Allergies Allergy Verified 11/11/23 10:34 Home Medications Medication Instructions Recorded Confirmed Type antiarthritic combination no.2 900 1 mg PO QAM 04/20/19 11/15/23 History mg tablet (glucosamine-chondroitin) atorvastatin 40 mg tablet 40 mg PO QPM 04/20/19 11/15/23 History omega-3 fatty acids 1,000 mg 1,000 mg PO QAM 04/20/19 11/15/23 History capsule (Fish Oil Concentrate) multivitamin (Daily Multi-Vitamin 1 tab PO QAM 05/01/20 11/15/23 History tablet) fluticasone propionate 50 2 spray intranasal UD PRN 02/17/23 11/15/23 History mcg/actuation nasal Congestion spray,suspension (Flonase Allergy Relief) tadalafil 5 mg tablet (Cialis) 5 mg PO UD PRN Sexual Activity 09/01/23 11/15/23 History finasteride 5 mg tablet 5 mg PO QAM 11/05/23 11/15/23 History pantoprazole 40 mg tablet,delayed 40 mg PO UD PRN Acid Reflux 11/05/23 11/15/23 History release tamsulosin 0.4 mg capsule 0.4 mg PO QAM 11/05/23 11/15/23 History sulfamethoxazole 800 1 tab PO BID #60 tabs 11/11/23 11/15/23 Rx mg-trimethoprim 160 mg tablet (Bactrim DS) apixaban 5 mg tablet (Eliquis) 10 mg (2 x 5 mg) PO BID #72 tabs 11/17/23 Rx Patient History Medical History Trouble swallowing hx/egd with dilation within last 6 mon and effective. UTI (urinary tract infection) current abx for/pt feeling better. Acid reflux very mild. 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) Surgical History History of esophageal dilatation History of cataract surgery right History of esophagogastroduodenoscopy (EGD) History of colonoscopy History of tooth extraction WTE Family History Sister Breast cancer Father Heart abnormality Heart disease Diabetes Mother Diabetes Aunt Diabetes Denies family history of Malignant hyperthermia Ovarian cancer Prostate cancer Myocardial infarction Adverse anesthesia outcome Bleeding disorder Colorectal cancer Social History Smoking Status: Never smoker Second Hand Exposure: No; Do You Dip or Chew Tobacco: No; Hx Alcohol Use: Yes Alcohol type: beer, wine and hard liquor Alcohol Intake Frequency: Monthly or Less Hx Substance Use: No Preferred Language: Occitan Communication Ability: Effective Visual Impairment: No Limitations Hearing Ability: Use of Hearing Aid Spa Host Required: No Beliefs That Will Affect Care: None marital status: Current Living Situation: Spouse current occupational status: retired How many Children do You have: 3 Feels Safe at Home: Yes Childhood Exposure to Second-Hand Smoke: No Diet: regular caffeine: Yes during the past year weight has: remained stable Dental Care, Regularly: Yes Physical Activity Frequency: Daily Seatbelt Use: always Sunscreen Use: Yes Do you think of yourself as: straight/heterosexual Assistive Devices: None Review of Systems Review of Systems: All systems reviewed & are unremarkable except as noted in HPI & below Physical Exam Constitutional: well developed and well nourished; no acute distress Respiratory: normal respiratory effort; no respiratory distress and no labored breathing Musculoskeletal: Head/Neck/Chest: normocephalic Skin: No visible rashes or lesions to exposed skin areas Neurologic: moves all extremities and awake Psychiatric: A+Ox3, euthymic affect Results & Data Vital Signs (Past 12 Hours) Vital Signs Temp Pulse Pulse Resp BP BP Pulse Ox 11/17/23 10:24 36.6 C 68 18 111/68 93 11/17/23 07:30 11/17/23 07:25 36.5 C 68 19 121/68 92 11/17/23 07:13 73 11/17/23 03:53 36.6 C 70 18 111/66 93 11/16/23 23:20 36.4 C L 71 18 121/68 96 O2 Del Method 11/17/23 10:24 Room Air 11/17/23 07:30 Room Air 11/17/23 07:25 Room Air 11/17/23 07:13 11/17/23 03:53 Room Air 11/16/23 23:20 Room Air PG Care Time/CCT Total # of Minutes Spent Total Time Spent with Patient: Total time spent is greater than 50% in coordination of care (as documented) at patient's floor/unit and/or counseling patient: Coding Level of Care Code 83877 INT INP/OBS CARE 2/55MIN Diagnoses S/P TURP Z90.79 Hematuria R31.0 Hematuria type: gross (2) Hematuria Hematuria type: gross Qualified Code(s): R31.0 - Gross hematuria
--- NOTE | 2023-11-17 13:04 | Discharge Summary ---
Date of Service November 17, 2023 Admission HPI Per Admitting Provider Dre is a 78-year-old male with a past medical history of BPH with LUTS and severe voiding dysfunction s/p Rezum, s/p TURP 11/11/2023, hyperlipidemia, have a positive hepatitis a IgG 09/2023 Patient was daily for stooling on Friday and was pending catheter placement and urology had an office visit prior to leaving. Presents to the ER for evaluation of chest pain which began 1 day ago and was recurrent this morning. Patient is found to have several bilateral segmental and subsegmental pulmonary emboli, stable cardiomegaly with small pericardial effusion, and no pulmonary infarct. pesi class III intermediate risk. Due to age, comorbidity, recent procedural intervention, and moderate risk PE patient is recommended for initiation of anticoagulation as an inpatient, monitoring for bleeding, and transition to oral agent on discharge if stable. 2 episodes of ches tpain unusual for him after eating [place] food. REcurred this morning, and was concerneda bout clots due to his recent TURP. While the chest sensation was more of a pressure and noticed it more when laying down in bed, and did not occur during exertion at all. Walked a half mile with his dog and had no pain/dyspnea. No pain on deep inspiration, but does have a strange pressure in the center of his chest on deep breathing. No leg swelling. No history of blood clots. No family history of DVT/PE No leg trauma or leg injuries No recent travel/long car rides. Planned trip to [place] on friday. No syncope/presyncope Medical History: Reviewed Medications: Reviewed Surgical History: Reviewed Family history: Reviewed Allergies: Reviewed. NKDA Social History: No tobacco. Rare social ETOH use. Code Status: DNR/DNI Admission Exam Per Admitting Provider General: A&Ox3. NAD. Cooperative. HEENT: Atraumatic, normocephalic. Vision/hearing intact. EOM intact. Pulm: CTAB A&P. -wheezes, -rales, -rhonchi. Symmetrical chest rise. No increased work of breathing. No respiratory distress. Cardiac: RRR, -mrg. Radial pulses intact and symmetrical. Abdominal: Nontender, nondistended, soft. BS present. Extremities: Warm, dry. No pitting edema. No swelling/asymmetry Principal Diagnosis Bilateral PEs, most likely provoked by recent TURP. Being discharged on oral Eliquis Patent foramen ovale Hematuria secondary to recent TURP. Stable while on oral Eliquis Discharge Exam General: Awake, conversant Heart: S1, S2/regular rate and rhythm, no murmur rubs or gallops Lungs: Clear to auscultation bilaterally. Normal effort Abdomen: Soft/nontender/nondistended. No hepatosplenomegaly Extremities: No clubbing/cyanosis. No edema Behavior: Appropriate, cooperative Discharge Data Allergies Allergy/AdvReac Type Severity Reaction Status Date / Time No Known Allergies Allergy Verified 11/11/23 10:34 Consultations 11/15/23 13:34 ED Decision to Admit Stat 11/16/23 14:05 Consult Urology Routine Ordered Studies 11/15/23 11:04 CT angio chest PE protocol Stat 11/15/23 15:15 US venous doppler LE Routine Hospital Course (1) Bilateral pulmonary embolism: - Several bilateral segmental and subsegmental pulmonary emboli. Lower extremity Dopplers negative No hypoxia even on ambulation High sensitive troponin is normal EKG without evidence of right heart strain, no territorial ST/T wave/ischemic changes Echocardiogram showed no right ventricular strain but patent foramina ovale was seen. No evidence of ACS. Patient did present with a feeling he describes as slight discomfort or pressure not pain in the center of his chest but this is not associated or worsened with exercise, is able to walk and perform activities without shortness of breath or pain. Likely due to PE Heparin drip was transitioned to Eliquis on 11/16 Patient was pending travel to [place] and is concerned about whether he can keep this. Did discuss that there is no clear data regarding when the ideal time to travel after a VTE/PE develops and that while he is theoretically pr otected from additional clot and worsening by his blood thinner he is at risk of bleeding complications both due to his history of diverticular bleed and recent surgical procedures. Reasonable to delay travel by around 2 to 4 weeks and then if doing well revisit at that time. Provoking risk factor of recent surgical procedure, otherwise no family history no increased risk factors. Likely target 3-6-month course of anticoagulation and then reassess as outpt. Hypercoagulable studies may be done outpatient Patient is being discharged on oral Eliquis While on Eliquis, he was noted to have some hematuria from his recent TURP. He was seen in consultation by urology who cleared the patient for discharge. (2) Benign localized prostatic hyperplasia with lower urinary tract symptoms (LUTS): S/p TURP 11/11/2023. Following with urology Continue Bactrim Patient has had some episodes of hematuria. Urology was consulted. Per urology, some degree of hematuria is to be expected following TURP. This may be prolonged due to the fact that he is now on Eliquis. Urology has cleared him for discharge Follow-up with urology per their schedule H&H stable despite hematuria (3) Hypercholesterolemia: Continue statin (4) History of hepatitis A: Self-limited, no transaminitis, following as outpatient no acute change in management Plan Discharge to home today Total Time Total Time Spent Total Time Spent (In Minutes): 35 Discharge Plan Discharge Items Patient Disposition: Home - Self-Care Reason For Visit: BILATERAL PE Discharge Diagnosis: Bilateral pulmonary emboli (blood clot in lungs). Being discharged on Eliquis Mild hematuria related to recent TURP Activity: Resume your previous activity Non-emergency contact: Primary Care Provider Call non-emergency contact if: you have any medication questions and your symptoms worsen Follow-up/Referrals: Curtis Zepeda III, CRNP [Primary Care Provider] - 11/20/23 4:00 pm Diet: Heart Healthy Addtl Attending Provider Instructions: Advised to follow-up with PCP in 1 week Advised to follow-up with urologist per previous schedule Advised to note that you were found to have blood clots in your lungs for which you are being discharged on a blood thinner namely Eliquis. You will need to follow-up with your PCP who will decide on the duration of the anticoagulation therapy. Most likely you will be on it for 3 to 6 months. Pending Studies at Discharge: No Stand-Alone Forms: My [employer], Work/School Release Medications and DC Order Prescriptions: New Eliquis 5 mg Tablet 10 mg PO BID Qty: 72 0RF Rx Instructions: advised to take 2 tablets by mouth twice a day until pm dose of 11/22, then switch to 1 tablet by mouth twice a day starting 11/23. Continued atorvastatin 40 mg tablet 40 mg PO QPM glucosamine-chondroitin 900 mg tablet 1 mg PO QAM omega-3 fatty acids [Fish Oil Concentrate] 1,000 mg capsule 1,000 mg PO QAM fluticasone propionate [Flonase Allergy Relief] 50 mcg/actuation spray,suspension 2 spray intranasal UD PRN (Reason: Congestion) Rx Instructions: administer into each nostril multivitamin [Daily Multi-Vitamin] Tablet 1 tab PO QAM tadalafil [Cialis] 5 mg Tablet 5 mg PO UD PRN (Reason: Sexual Activity) Rx Instructions: administer approximately 30min before sexual activity; do not use more than 1 dose per 24hrs tamsulosin 0.4 mg capsule 0.4 mg PO QAM pantoprazole 40 mg tablet,delayed release (DR/EC) 40 mg PO UD PRN (Reason: Acid Reflux) Rx Instructions: TAKE 1 TABLET BY MOUTH EVERY DAY finasteride 5 mg tablet 5 mg PO QAM sulfamethoxazole-trimethoprim [Bactrim DS] 800-160 mg tablet 1 tab PO BID Qty: 60 0RF Discharge Orders: Discharge Order (Routine); Ordered 11/17/23 Ordered By: Teresa Bauer Admission Data Admit Date/Time: 11/15/23 14:06 Attending Provider: Teresa Bauer Admit Provider: Davey Neves Primary Care Provider: Curtis Zepeda III Other Providers: Davey Neves; Yash Walker Other Interventions: Discharge Summary Assessment (RN) Last Done: 11/17/23 13:05 Coding Level of Care Code 74011 INP/OBS DISCH >30 MIN Diagnoses Bilateral pulmonary embolism I26.99 Benign localized prostatic hyperplasia with lower urinary tract symptoms (LUTS) N40.1 Hypercholesterolemia E78.00 History of hepatitis A Z86.19
== END 2023-11-17 13:56 | disposition home or self-care (01) ==
LOC: ED 10:32 → EDINP 10:32 → SUATTDRO 14:06 → 2S 16:55